=== PATIENT | female | born 1980 | race African-American/Black ===

== ENCOUNTER 2017-06-10 22:13 | Emergency (ER) | payer OTHER ==
[~2017-06-10] VITALS: Ht 165.1 cm; Wt 99.8 kg
[~2017-06-10 22:13] MED LIST: NKM
--- NOTE | 2017-06-10 22:53 | Emergency Room Report ---
History of Present Illness General Chief Complaint: Female Urogenital Problems Source: Patient Present Illness HPI Is a 36 year female with no significant past medical history. She presents with 40s history of watery diarrhea. Has abdominal cramping no fever chills but no nausea no vomiting. She has only been to [place] this weekend. No recent antibiotics. Her second complaint is that she has a vaginal discharge and itchiness. Whitish in nature. No dysuria frequency. Had a yeast infection the past and felt like this. Allergies: Coded Allergies: No Known Allergies (Unverified , 09/30/16) Patient History Past Medical History: see triage record Past Surgical History: other Pertinent Family History: none Social History: Denies: smoking Last Menstrual Period: 05/19/17 Now: No Immunizations: other Reviewed Nursing Documentation: PMH: Agreed, PSxH: Agreed Nursing Documentation-PMH Past Medical History: No Stated History Review of Systems Eye: Denies: blurred vision, eye pain ENT: Denies: ear pain, nose congestion, throat swelling Respiratory: Denies: cough, shortness of breath Cardiovascular: Denies: chest pain, palpitations Gastrointestinal: Reports: diarrhea, Denies: abdominal pain, nausea, vomiting Musculoskeletal: Denies: back pain, joint pain Skin: Denies: rash Neurological: Denies: headache, numbness Endocrine: Denies: increased thirst, increased urine Hematologic/Lymphatic: Denies: easy bruising All Other Systems: negative except mentioned in HPI Physical Exam Vital Signs Date Time Temp Pulse Resp B/P Pulse Ox O2 Delivery O2 Flow Rate FiO2 06/10/17 22:20 98.8 102 14 125/83 100 Room Air vitals normal Sp02 EP Interpretation: reviewed, normal General Appearance: well appearing, no apparent distress, alert, obese Head: normocephalic, atraumatic Eyes: bilateral eye EOMI, bilateral eye PERRL ENT: hearing grossly normal, normal pharynx Neck: full range of motion, supple, no meningismus Respiratory: chest non-tender, lungs clear, normal breath sounds Cardiovascular #1: regular rate, rhythm, no murmur Gastrointestinal: normal bowel sounds, non tender, no mass, no organomegaly, no bruit, non-distended Genitourinary: other - 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 Whitish discharge. No cervical motion tenderness. Musculoskeletal: back normal, gait/station normal, normal range of motion Psychiatric: mood/affect normal Skin: warm/dry Medical Decision Making Diagnostic Impression: Primary Impression: Bacterial vaginosis Additional Impression: Diarrhea in adult patient ER Course Patient with diarrhea. No evidence of obstruction or acute abdomen. She looks well. No dehydration. She does have bacterial vaginosis. No clonus. We'll discharge home. Last Vital Signs Date Time Temp Pulse Resp B/P Pulse Ox O2 Delivery O2 Flow Rate FiO2 06/10/17 22:20 98.8 102 14 125/83 100 Room Air Status: improved Disposition: HOME, SELF-CARE Condition: Stable Scripts Metronidazole* (FLAGYL*) 500 Mg Tablet 500 MG ORAL BID, #14 TAB Prov: SAMARA PRIDE M.D. 06/10/17 Ciprofloxacin Hcl* (CIPROFLOXACIN HCL*) 500 Mg Tablet 500 MG ORAL Q12H, #14 TAB 0 Refills Prov: SAMARA PRIDE M.D. 06/10/17 Additional Instructions: Followup with your Dr. in 7 days. Return if symptom worsen. SAMARA PRIDE M.D. Jun 10, 2017 22:53
[2017-06-10 23:14] LABS: APPEARANCE,URINE SLIGHTLY CLOUDY; KETONES,URINE NEGATIVE (NEGATIVE); LEUKOCYTE ESTERASE ,URINE 1+ (NEGATIVE); NITRITE,URINE POSITIVE (NEGATIVE); PH,URINE 5 (4.5-8.0); PROTEIN,URINE NEGATIVE (NEGATIVE); UROBILINOGEN,URINE 1 MG/DL (0.0-1.0)
[2017-06-10 23:38] LABS: RBC,URINE 0-2 /HPF (0 - 2)
[2017-06-10 23:39] LABS: BACTERIA,URINE MANY /HPF; SQUAMOUS EPITHELIAL CELL,UR FEW /LPF (NONE/OCC)
[2017-06-10] MEDS ORDERED: CIPROFLOXACIN500 M2 ORAL (23:41)
[2017-06-10] MEDS ORDERED: METRONIDAZOLE500 MG ORAL (23:41)
[2017-06-10] MEDS ORDERED: FLUCONAZOLE100 MG ORAL (23:55)
[2017-06-10 23:56] VITALS: BP 125/83
== END 2017-06-10 23:57 | disposition home or self-care (01) ==
LOC: EMR 23:41
DX: N76.0 Acute vaginitis (principal); R19.7 Diarrhea, unspecified
CPT/HCPCS: 81003; 81025; 87210; 99284

== ENCOUNTER 2019-07-28 10:30 | Emergency (ER) | payer OTHER ==
[~2019-07-28] VITALS: Ht 165.1 cm; Wt 102.5 kg
[~2019-07-28 10:30] MED LIST changes: +CIPROFLOXACIN500 M2 ORAL; +FLUCONAZOLE100 MG ORAL; +METRONIDAZOLE500 MG ORAL
[2019-07-28] MEDS ORDERED: BLISOVI FE 1.51 EACH PO (10:42)
--- NOTE | 2019-07-28 10:52 | NUR ---
ED Nurse Note: Pt came in from home due to dizziness and weakness x 1 month, got worse x 3-4 days. Also c/o blurred vision and chest pain 5/10 at this time. Pt has no medical hx, only takes control pills. AOx4, VSS at this time. Will cont to monitor.
[2019-07-28 11:13] VITALS: BP 111/69
[2019-07-28] MEDS ORDERED: GI Cocktail 50ml ORAL ONE (11:15)
[2019-07-28] MEDS ORDERED: Meclizine 25mg tab ORAL PRN (11:15)
[2019-07-28 11:21] LABS: BASOPHILS % (AUTO) 0.9 % (0.0-2.0); EOSINOPHILS % (AUTO) 4.8 % (0.0-3.0); HEMATOCRIT 41.6 % (37.0-47.0); HEMOGLOBIN 13.9 G/DL (12.0-16.0); LYMPHOCYTES % (AUTO) 35.5 % (20.0-45.0); MEAN CORPUSCULAR VOLUME 91 FL (80-99); MONOCYTES % (AUTO) 7.2 % (1.0-10.0); NEUTROPHILS % (AUTO) 51.6 % (45.0-75.0); PLATELET COUNT 264 K/UL (150-450); RED BLOOD COUNT 4.57 M/UL (4.20-5.40); RED CELL DISTRIBUTION WIDTH 11.5 % (11.6-14.8)
--- NOTE | 2019-07-28 11:21 | Emergency Room Report ---
History of Present Illness General Chief Complaint: Dizziness Source: Patient Present Illness HPI Disclaimer: Please note that this report is being documented using [employer] technology. This can lead to erroneous entry secondary to incorrect interpretation by the dictating instrument. HPI: 38-year-old female no reported medical history presents for evaluation of dizziness and headache. Patient states she has been having intermittent episodes of vertigo with left-sided spinning sensation for the past month. They are generally mild until 4 days ago. She is now having sudden onset and intense vertiginous episodes usually triggered by head movements. Denies tinnitus or changes in hearing acuity. She notes a generalized fatigue, epigastric burning sensation, headaches, photophobia, nausea without vomiting. Denies diarrhea. No recent illness. Denies fever, chills, URI symptoms. No prior history of vertigo. Has not yet seen her PMD. Denies changes in balance or coordination. Has been working with a physical therapist and states her coordination and balance are at baseline. PMH: Denies PSH: Denies Allergies: Denies Social Hx: Denies drug or alcohol use Allergies: Uncoded Allergies: OTC COLD MEDICINES (Allergy, Unknown, 07/28/19) Patient History Last Menstrual Period: 07/08/2019 Nursing Documentation-PMH Past Medical History: No Stated History Review of Systems All Other Systems: negative except mentioned in HPI Physical Exam Vital Signs Date Time Temp Pulse Resp B/P (MAP) Pulse Ox O2 Delivery O2 Flow Rate FiO2 07/28/19 10:37 98.6 91 16 130/78 (95) 100 Room Air General: Awake and alert, appears uncomfortable HEENT: NC/AT. EOMI. PERRLA. Visual crowe are full. No nystagmus. Right tympanic membrane pearly paez, nonbulging, nonerythematous, no effusion. Left TM is obscured by cerumen. Hearing acuity intact bilaterally. Facial expressions are symmetrical. No facial droop. Moist mucous membranes. Cardiovascular: RRR. S1 and S2 normal. No murmur appreciated Resp: Normal work of breathing. No cough, wheezing or crackles appreciated Abdomen: Abdomen is soft, nondistended. Nontender Skin: Intact. No abrasions, laceration or rash over the exposed skin MSK: Normal tone and bulk. Moving all extremities. No obvious deformity. Strength in the shoulders, elbows, hips and knees 5/5 bilaterally Neuro: Awake and alert. Mentating appropriately. Facial expression symmetrical. No dysarthria, no ataxia on [id number] or [id number] testing. Sensation to light touch is intact over the upper and lower extremities. The patient has intact speech with good repetition, comprehension. Fund of knowledge is full, answering questions appropriately. No aphasia Medical Decision Making Diagnostic Impression: Primary Impression: Vertigo ER Course Is a 38-year-old female presented for evaluation of 1 month vertiginous symptoms with sudden intensification 4 days ago, headache, double vision/ blurred vision, weakness and nausea. Differential includes but is not limited to viral syndrome, BPPV, vestibular neuritis, URI, labyrinthitis, intracranial mass, demyelinating disease, brainstem ischemia. Will start with CT scan of the head, IV fluids, broad metabolic and infectious work-up and treat with meclizine and Zofran. Can advance work-up as needed based on clinical response and lab and CT results. Laboratory Tests Test 07/28/19 11:00 White Blood Count 4.0 K/UL (4.8-10.8) L Red Blood Count 4.57 M/UL (4.20-5.40) Hemoglobin 13.9 G/DL (12.0-16.0) Hematocrit 41.6 % (37.0-47.0) Mean Corpuscular Volume 91 FL (80-99) Mean Corpuscular Hemoglobin 30.3 PG (27.0-31.0) Mean Corpuscular Hemoglobin Concent 33.3 G/DL (32.0-36.0) Red Cell Distribution Width 11.5 % (11.6-14.8) L Platelet Count 264 K/UL (150-450) Mean Platelet Volume 5.8 FL (6.5-10.1) L Neutrophils (%) (Auto) 51.6 % (45.0-75.0) Lymphocytes (%) (Auto) 35.5 % (20.0-45.0) Monocytes (%) (Auto) 7.2 % (1.0-10.0) Eosinophils (%) (Auto) 4.8 % (0.0-3.0) H Basophils (%) (Auto) 0.9 % (0.0-2.0) Urine Color Pale yellow Urine Appearance Clear Urine pH 8 (4.5-8.0) Urine Specific [place] 1.010 (1.005-1.035) Urine Protein Negative (NEGATIVE) Urine Glucose (UA) Negative (NEGATIVE) Urine Ketones Negative (NEGATIVE) Urine Blood 2+ (NEGATIVE) H Urine Nitrite Negative (NEGATIVE) Urine Bilirubin Negative (NEGATIVE) Urine Urobilinogen Normal MG/DL (0.0-1.0) Urine Leukocyte Esterase Negative (NEGATIVE) Urine RBC 2-4 /HPF (0 - 2) H Urine WBC 0 /HPF (0 - 2) Urine Squamous Epithelial Cells Few /LPF (NONE/OCC) Urine Bacteria Few /HPF (NONE) Urine HCG, Qualitative Negative (NEGATIVE) Sodium Level 141 MMOL/L (136-145) Potassium Level 3.7 MMOL/L (3.5-5.1) Chloride Level 107 MMOL/L (98-107) Carbon Dioxide Level 26 MMOL/L (21-32) Anion Gap 8 mmol/L (5-15) Blood Urea Nitrogen 11 mg/dL (7-18) Creatinine 1.0 MG/DL (0.55-1.30) Estimate Glomerular Filtration Rate > 60 mL/min (>60) Glucose Level 87 MG/DL (74-106) Calcium Level 8.8 MG/DL (8.5-10.1) Total Bilirubin 0.6 MG/DL (0.2-1.0) Aspartate Amino Transferase (AST) 18 U/L (15-37) Alanine Aminotransferase (ALT) 24 U/L (12-78) Alkaline Phosphatase 37 U/L (46-116) L Troponin I 0.000 ng/mL (0.000-0.056) Total Protein 7.6 G/DL (6.4-8.2) Albumin 3.2 G/DL (3.4-5.0) L Globulin 4.4 g/dL Albumin/Globulin Ratio 0.7 (1.0-2.7) L EKG Diagnostic Results EKG Time: 11:00 Rate: normal ST Segments: no acute changes Other Impression Sinus rhythm, normal axis, normal intervals, no acute ischemic changes Rhythm Strip Diag. Results Rhythm Strip Time: 11:00 EP Interpretation: yes Rate: 80s Rhythm: NSR, no PVC's, no ectopy Reevaluation Time: 15:04 Last Vital Signs Date Time Temp Pulse Resp B/P (MAP) Pulse Ox O2 Delivery O2 Flow Rate FiO2 07/28/19 11:13 98.6 80 21 111/69 100 Room Air Status: improved Reevaluation Impression Labs have returned largely within normal limits. CT scan of the head found no acute intracranial abnormalities. The patient remained symptomatic complaining of leftward vertiginous symptoms. As the patient has had persistent symptoms for 4 days straight along with visual changes and diffuse weakness central cause of vertigo such as brainstem ischemia must be ruled out. An MRI was ordered which does not show any ischemic lesion or other pathology such as demyelinating disease. Patient will be discharged home on meclizine and Zofran. She will follow-up with her PMD and return to the emergency department any other new or worsening symptoms. Discussed lab results, imaging studies, new medications and need for follow-up with patient and her who is now present at bedside. She will be discharged home Disposition: HOME, SELF-CARE Condition: Improved Scripts Ondansetron Odt* (ZOFRAN ODT*) 4 Mg Tab.rapdis 4 MG BC EVERY 6 HOURS PRN for Nausea & Vomiting, #20 TAB 0 Refills Prov: Paul Ortiz MD 07/28/19 Meclizine Hcl* (MECLIZINE*) 25 Mg Tablet 25 MG ORAL THREE TIMES A DAY for 5 Days, #20 TAB Prov: Paul Ortiz MD 07/28/19 Paul Ortiz MD Jul 28, 2019 11:21
[2019-07-28 11:22] LABS: APPEARANCE,URINE CLEAR; BILIRUBIN, URINE NEGATIVE (NEGATIVE); COLOR,URINE PALE YELLOW; GLUCOSE, URINE (UA) NEGATIVE (NEGATIVE); KETONES,URINE NEGATIVE (NEGATIVE); LEUKOCYTE ESTERASE ,URINE NEGATIVE (NEGATIVE); NITRITE,URINE NEGATIVE (NEGATIVE); PH,URINE 8 (4.5-8.0); PROTEIN,URINE NEGATIVE (NEGATIVE); UROBILINOGEN,URINE NORMAL MG/DL (0.0-1.0)
[2019-07-28 11:24] LABS: ANION GAP 8 mmol/L (5-15); BLOOD UREA NITROGEN 11 mg/dL (7-18); CALCIUM 8.8 MG/DL (8.5-10.1); CARBON DIOXIDE 26 MMOL/L (21-32); CHLORIDE 107 MMOL/L (98-107); POTASSIUM 3.7 MMOL/L (3.5-5.1); SODIUM 141 MMOL/L (136-145)
[2019-07-28 11:28] LABS: ALANINE AMINOTRANSFERASE 24 U/L (12-78); ALBUMIN 3.2 G/DL (3.4-5.0); ALBUMIN/GLOBULIN RATIO 0.7 (1.0-2.7); ALKALINE PHOSPHATASE 37 U/L (46-116); ASPARTATE AMINO TRANSFERASE 18 U/L (15-37); BILIRUBIN,TOTAL 0.6 MG/DL (0.2-1.0)
[2019-07-28] MEDS ORDERED: Dicyclomine HCl 10mg/5ml oral soln ONE (11:29)
[2019-07-28] MEDS ORDERED: Lidocaine 2% Visc 15ml soln ONE (11:29)
[2019-07-28] MEDS ORDERED: Mylanta II UD 30ml ONE (11:29)
[2019-07-28] MEDS ORDERED: Dicyclomine HCl 10mg/5ml oral soln ORAL ONE (11:45)
[2019-07-28] MEDS ORDERED: Mylanta II UD 30ml ORAL ONE (11:45)
[2019-07-28] MEDS ORDERED: Lidocaine 2% Visc 15ml soln ORAL ONE (11:45)
--- NOTE | 2019-07-28 12:14 | NUR ---
ED Nurse Note: Pt stated she felt " a little bit better". Tolerated all medications well, no side effects reported or noted.
--- NOTE | 2019-07-28 12:25 | Diagnostic Imaging Report ---
EXAM: CT Head Without Intravenous Contrast CLINICAL HISTORY: DIZZY TECHNIQUE: Axial computed tomography images of the head brain without intravenous contrast. CTDI is 70.38 mGy and DLP is 1326.60 mGy-cm. One or more of the following dose reduction techniques were used: automated exposure control, adjustment of the mA and or kV according to patient size, use of iterative reconstruction technique. COMPARISON: None FINDINGS: Brain: No acute infarct or hemorrhage. No extra-axial fluid collection. No mass effect or midline shift. Ventricles and sulci: Normal. No ventriculomegaly or intraventricular hemorrhage. Skull: Normal. No bony lesion or fracture. Subcutaneous tissues: Normal. Sinuses: Mild mucosal thickening in the ethmoid air cells. Mastoid air cells: Normal. Orbits: Grossly unremarkable. IMPRESSION: No acute intracranial abnormality.
[2019-07-28] MEDS ORDERED: Gadavist 7.5mMol/7.5ml vial IV PRN (12:45)
--- NOTE | 2019-07-28 13:12 | NUR ---
ED Nurse Note: obstetrics tech notified that he/she will be here in 30 mins.
[2019-07-28] MEDS ORDERED: LORazepam 1mg tab ORAL ONE (13:15)
[2019-07-28 13:39] VITALS: BP 119/70
[2019-07-28] MEDS ORDERED: MECLIZINE HCL25 MG ORAL (14:12)
--- NOTE | 2019-07-28 14:22 | NUR ---
ED Nurse Note: Pt transfered to MRI via gurney. No sign of acute distress.
--- NOTE | 2019-07-28 15:15 | Diagnostic Imaging Report ---
Indication: Dizziness/vertigo. Headache. Blurry vision Technique: The head was imaged in a 1.5 Ambar magnet. Sequences obtained include sagittal and axial T1 FLAIR, axial T2 fast spin echo with fat saturation, axial T2 FLAIR, diffusion and ADC map. Gadolinium-enhanced axial and coronal T1 FLAIR obtained also. Comparison: None Findings: The size, contour, and configuration of the sulci, ventricles, and basal cisterns appear normal. Duarte-white differentiation is normal. There is no restricted diffusion. There is no mass effect, midline shift, edema, or hemorrhage. There are no abnormal extra-axial or intra-axial fluid collections. The corpus callosum is unremarkable. The brainstem and cerebellum are unremarkable. The sella is unremarkable. Bone marrow signal within the visualized osseous structures appears age appropriate and unremarkable otherwise. There is mild mucosal thickening within ethmoid sinus. No abnormal enhancement is identified. Impression: Negative MRI brain with and without contrast. Mild ethmoid sinusitis
[2019-07-28] MEDS ORDERED: ONDANSETRON ODT4 MG BC (15:27)
[2019-07-28] MEDS ORDERED: Meclizine 25mg tab ORAL ONE (15:30)
[2019-07-28 15:53] VITALS: BP 119/76
[2019-07-28 15:54] VITALS: BP 119/76
--- NOTE | 2019-07-28 15:54 | NUR ---
ER DISCHARGE NOTE: Patient is cleared to be discharged per ERMD, pt is aox4, on room air, with stable vital signs. pt was given dc and prescription instructions, pt was able to verbalize understanding, pt id band and iv site removed without complications. pt is able to ambulate with steady gait. pt took all belongings.
--- NOTE | 2019-07-29 19:52 | Cardiology Report ---
APPROVED REPORT EKG Measurement Heart [id number] Normal sinus rhythm Normal ECG
== END 2019-07-28 15:54 | disposition home or self-care (01) ==
LOC: EMR 11:13
DX: R42 Dizziness and giddiness (principal); R51 Headache
CPT/HCPCS: 36415; 70450; 70553; 80053; 81003; 81025; 84484; 85025; 93005; 96361; 96374; A9585; J2405; Z7502; 99284